=== PATIENT | male | born 1970 | race Caucasian/White ===

== ENCOUNTER 2017-02-13 21:04 | Emergency (ER) | payer OTHER ==
[2017-02-13] MEDS ORDERED: Proparacaine 0.5% Ophth Soln 15 ML Bottle EYEBOTH STA (21:13)
[2017-02-13 21:24] VITALS: BP 184/114
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
== END 2017-02-13 21:44 | disposition home or self-care (01) ==
LOC: MW.ED 21:04
DX: S05.02XA Injury of conjunctiva and corneal abrasion without foreign body, left eye, initial encounter (principal); H00.014 Hordeolum externum left upper eyelid; H10.9 Unspecified conjunctivitis; I10 Essential (primary) hypertension; X58.XXXA Exposure to other specified factors, initial encounter
CPT/HCPCS: 99283